=== PATIENT | female | born 1970 | race Caucasian/White ===

== ENCOUNTER → 2021-02-25 | Outpatient (CLI) | payer OTHER | LOC: ULTRA 10:29 | PROVIDERS: ATTEND Nurse Practitioner | DX: K82.4 Cholesterolosis of gallbladder (principal); N28.1 Cyst of kidney, acquired; R10.11 Right upper quadrant pain ==

== ENCOUNTER → 2021-03-12 | Day surgery (SDC) | payer OTHER ==
[~2021-03-12] VITALS: Ht 165.1 cm; Wt 68.0 kg
[~2021-03-12] MED LIST: AMPHETAMINE SAL30 MG PO; COLACE 100 MG100 MG PO; IBUPROFEN 200200 M1 PO; MIRALAX17 GM PO; TRAMADOL 50 MG50 MG PO; TYLENOL325 MG PO
[2021-03-12 09:55] VITALS: BP 123/45
[2021-03-12 12:44] VITALS: BP 123/45
--- NOTE | 2021-03-17 11:07 | PATH ---
[facility] [address] [place] [address] PATHOLOGY RPT PROCEDURE Name: GISSEL KOENIG Room #: REG [facility].#: [id number] Admission: 03/12/21 Date of : 74 Discharge: Report #: [id number] Path Case #: [id number] [facility] Accession Number: [id number] . 01 Material submitted: . gallbladder - GALLBLADDER . 01 Clinical history: . LAPAROSCOPIC CHOLECYSTECTOMY- . 02 Diagnosis: Gallbladder, cholecystectomy: - Chronic cholecystitis without cholelithiasis. . (ANK:cordell; 03/16/2021) [facility] 03/16/2021 1109 Local . 02 Electronically signed: . Gloria Wick MD, Pathologist NPI- [id number] . 01 Gross description: . Fixative: Formalin Labeled: Gallbladder Specimen received: Intact gallbladder Dimensions: 6.2 x 2.8 x 2.4 cm Serosa: Light engel-canas and adipose covered Lymph node: None identified Mucosa: Velvety and dark engel to bile-stained with yellow stippling Average wall thickness: 0.2 cm Calculi: None identified Abnormalities: None identified . 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 ([facility]; 03/12/2021) [facility] 03/12/2021 1658 Local . 02 Pathologist provided ICD-10: K81.1 . 02 CPT . 846834 Specimen Comment: A courtesy copy of this report has been sent to [phone] Specimen Comment: [phone] Specimen Comment: Report sent to / DR LOPEZ Specimen Comment: A duplicate report has been generated due to demographic [address] [address] PATHOLOGY RPT PROCEDURE Name: AMEENA KOENIGNDA Room #: REG [facility].#: [id number] Admission: 03/12/21 Date of : 74 Discharge: Report #: [id number] Path Case #: [id number] updates. Performed at: 01 [facility] [address] [facility] [address], [place] [id number] MD Arjun Currie MD Phone: [phone] Performed at: [address] [id number] MD Gloria Wick MD Phone: [phone]
== END | disposition home or self-care (01) ==
LOC: OR 08:47
PROVIDERS: ATTEND Surgery
DX: K81.1 Chronic cholecystitis (principal); Z20.822 Contact with and (suspected) exposure to COVID-19; Z88.2 Allergy status to sulfonamides
CPT/HCPCS: 50010; 50101; 50411; 50555; 51489; 52265; 52266; 53307; 53310; 53312; 54022; 54118; 55245; 56462; 56525; 56526; 56674; 58574; 58910; 62110; 62900; 70005